=== PATIENT | female | born 1995 | race African-American/Black ===

== ENCOUNTER 2019-06-10 09:00 | Outpatient (CLI) | payer BC ==
--- NOTE | 2019-06-10 12:27 | MRI ---
LEFT KNEE MRI WITH IV CONTRAST: Date: 06/10/19 HISTORY: Left knee pain, follow-up sports injury. COMPARISON: 03/25/14. FINDINGS: There is a complex tear involving the medial meniscus extending from the body into the posterior horn and to the level of the posterior root, with some minimal intrameniscal cystic changes at the level of the posterior root. There are some persistent abnormal signal changes involving the lateral menisc us, posterior horn, and body region, with small focus of intrameniscal and parameniscal cystic change . There is a new focus of multilobulated cystic change noted posterior to the posterolateral compartm ent joint space measuring 1.3 x 3.8 x 0.8 cm, possibly a ganglion cyst which has developed since the prior study. Anterior and posterior cruciate ligaments, and collateral ligament complexes, and lorrie ceps and patellar tendons are intact. No abnormal marrow signal. No evidence for abnormal joint effus ion. IMPRESSION: 1. Complex tear of medial meniscus. 2. Minimal intrameniscal and parameniscal cystic change involving the posterior horn and posterior b cherrie of the lateral meniscus. 3. Newly developed somewhat loculated cystic collection posterior to the lateral compartment, possib ly a ganglion cyst. 4. No evidence for other significant acute internal derangement. POS: [facility]
== END 2019-06-10 09:01 | disposition home or self-care (01) ==
LOC: BICMRI 09:00
PROVIDERS: ATTEND Orthopaedic Surgery
DX: M25.562 Pain in left knee (principal); S83.232A Complex tear of medial meniscus, current injury, left knee, initial encounter

== ENCOUNTER 2019-09-02 06:15 | Outpatient (CLI) | payer BC ==
[2019-09-02 12:10] LABS: #Basophils 0.1 thou/uL (0.0-0.2); #Eosinphils 0.1 thou/uL (0.0-0.7); #Lymphocytes 2.2 thou/uL (1.20-3.40); #Monocytes 0.6 thou/uL (0.11-0.59); #Neutrophils 2.4 thou/uL (1.40-6.50); %Eosinophils 1.7 % (0.0-10.0); %Monocytes 11.2 % (0.0-10.0); Hemoglobin 14.9 g/dL (12.0-16.0); Mean Corpuscular HGB CONC 35.1 g/dL (32.0-36.0); Mean Platelet Volume 7.6 fL (7.4-10.4); Platelet Count 336 thou/uL (130-400); Red Blood Cell (RBC) Count 4.53 mill/uL (4.20-5.40); White Blood Cell (WBC) Count 5.4 thou/uL (4.8-10.8)
[2019-09-02 12:16] LABS: BHCG - Serum Negative (NEGATIVE); Bacteria/HPF None Seen HPF (None Seen); Bilirubin Negative (Negative); Blood, Urine 2+ (Negative); Clarity Clear (Clear); Glucose, Urine (Dipstick) Normal (Negative); Leukocyte Negative Leu/uL (Negative); Nitrite Negative (Negative); Pregs Control Background? CLEAR/WHITE (CLR/WHITE); Pregs Control Bar Appear? YES (CONTROL BAR); Protein, Urine (Dipstick) Negative (Neg-Trace); RBC/HPF Greater than 50 HPF (0-3); Squamous Epithelial 0-3 HPF (0-3); Urobilinogen Normal mg/dL (Less than 2)
== END 2019-09-02 06:16 | disposition home or self-care (01) ==
LOC: LABBT 06:15
PROVIDERS: ATTEND Orthopaedic Surgery
DX: Z01.812 Encounter for preprocedural laboratory examination (principal); M23.203 Derangement of unspecified medial meniscus due to old tear or injury, right knee; M23.200 Derangement of unspecified lateral meniscus due to old tear or injury, right knee
CPT/HCPCS: 81001; 84703; 85025

== ENCOUNTER 2019-09-04 06:58 | Day surgery (SDC) | payer BC ==
[2019-09-02 10:34] VITALS: BMI 37.8
[2019-09-04] MEDS ORDERED: Ketorolac Tromethamine 30 MG/ML VIAL ONE (09:21)
[2019-09-04] MEDS ORDERED: Lidocaine 1% PF 5 ML VIAL ONE (09:21)
[2019-09-04] MEDS ORDERED: PROPOFOL 200 MG/20 ML VIAL ONE (09:21)
[2019-09-04] MEDS ORDERED: Lidocaine 1% (PF) 30 ML VIAL ONE (09:22)
[2019-09-04] MEDS ORDERED: Lidocaine 1% w/Epinephrine 1:100K 20 ML VIAL ONE (09:22)
[2019-09-04] MEDS ORDERED: Fentanyl 100 MCG/2 ML VIAL ONE ×2 (09:35→11:03)
[2019-09-04] MEDS ORDERED: HYDROcodone/Acetaminophen 5/325 mg Tablet ONE (11:27)
--- NOTE | 2019-09-04 13:20 | HP ---
CHIEF COMPLAINT: Left knee pain. HISTORY OF PRESENT ILLNESS: Ms. Bret Law is a 24-year-old female, who presents with left knee pain, noted as medial and lateral pain. The pain can be severe at times, at a 7 or 8. The patient had a history of a discoid lateral meniscectomy performed in 2013. Since the operation, she has had some intermittent pain. She complains of posterior knee pain. Denies numbness or tingling . PAST MEDICAL HISTORY: Exercise-induced asthma. PAST SURGICAL HISTORY: Meniscectomy. ALLERGIES: NO KNOWN DRUG ALLERGIES. MEDICATIONS: None. SOCIAL HISTORY: Nonsmoker. No illicit drug use. The patient works as a security officers and guards. PHYSICAL EXAMINATION: GENERAL: Alert and oriented female, in no acute distress. EXTREMITIES: Left knee, no effusion. No significant erythema, ecchymosis, or swelling. The patient has medial and lateral joint line tenderness and tenderness in the lateral popliteal fossa. Neurovascularly intact distally. MRI showed a complex medial meniscus tear, previous debridement of lateral meniscus and a posterior multilobular Hollingsworth's cyst. I discussed with her performing a medial and lateral meniscectomy, possible repair. I discussed that if I could rupture, decompress the cyst and I would attempt to, but the position of the cyst lies directly anterior to the neurovascular bundle posteriorly and lateral to the posterolateral aspect of the knee. Therefore, I feel that this would be a difficult cyst to decompress/excise with potential further complication, I felt that likely the pain is potentially emanating from her meniscus and that sealing off the opening for the cyst may improve. IMPRESSION: 1. discoid lateral meniscus previous surgery 2. medial meniscus tear, 3. ganglion cyst . ASSESSMENT AND PLAN: The patient was taken out the OR for medial and lateral meniscectomy, possible repair potentially decompress cyst, but given its position within the knee and the concern close the neurovascular bundles medially and laterally. Therefore, I would just try to decompress or rupture it, but not likely completely excise the cyst. The risks and benefits of the surgery to include, pain, scar, bleeding, infection, damage to vital structures, arthritis long-term, need for further surgeries, damage to vital structures, loss of life or limb, and blood clots. The patient understood the risks and benefits and elected to proceed. The patient will be taken back to the operative suite. Job ID: [id number] [facility]
--- NOTE | 2019-09-04 14:39 | OP ---
DATE OF PROCEDURE: 09/04/2019 PREOPERATIVE DIAGNOSES: 1. Left lateral meniscus tear, previous discoid meniscectomy. 2. Complex posterior root medial meniscus tear, multiloculated cyst. POSTOPERATIVE DIAGNOSES: 1. Left lateral meniscus tear, previous discoid meniscectomy. 2. Complex posterior root medial meniscus tear, multiloculated cyst. PROCEDURE PERFORMED: Lateral meniscectomy. MACHINE SHOP SPECIALIST: None. ANESTHESIOLOGIST: Yoel. ANESTHESIA: The patient received a LMA with lidocaine plain and lidocaine with epicaine. TOURNIQUET TIME: 28 minutes. ANTIBIOTICS: Ancef 2 g. COMPLICATIONS: None. 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 The patient describes the knee pain as medial and lateral and posteriorly. The patient had a previous discoid lateral meniscus in 2013, which was debrided. She states that her pain has been severe in the left knee. Since that time, the pain is localized both medially and laterally as well as some posterior knee pain. The patient had an MRI showing a complex medial meniscus tear with pericystic changes of the lateral meniscus and tearing and a cystic flexion consistent with a ganglion cyst in the posterior compartment of the knee. I discussed with the patient the risks and benefits of the medial and lateral meniscectomy of her left knee. I discussed the risks and benefits, to include, pain, scar, bleeding, infection, damage to vital structures, continued pain, inability to decompress the cyst, arthritis, decreased range of motion and strength, loss of life or limb, blood clots. The patient understood the risks and benefits of the procedure and elected to proceed. DESCRIPTION OF PROCEDURE: Time-out was performed designating the patient's left lower extremity as the operative site based on site, consent, and marking. After time-out, the patient's left lower extremity was prepped and draped in a sterile fashion. The patient had a lidocaine with epinephrine injected in the joint preprocedure, made my portal to the previous stab incisions laterally. Then, I used a spinal needle with the same medial portal, excised some of the remnant scar and fat pad. I saw the ACL, PCL looked at the trochlear, patellar cartilage was good, looked in the gutters for loose bodies and saw nothing. I then looked at the medial femoral condyle and tibia, which looked good. I looked at the medial meniscus first, I could find some small changes, but the meniscus looked clean throughout its entire course within the joint. I probed underneath the meniscus trying to extrude in the joint, which I could not. I could not find a tear on top of it, so it must have been more in the synovium are hidden underneath the tear. I did not, given the clean look of the meniscus, feel that excising was the optimal outcome. I felt that leaving it in place was best, the tear was hidden, but it was not extruding the joint. Therefore, I left it alone. I moved from there to the lateral compartment. The patient's previous discoid meniscectomy had a flap in the anterior aspect. She had kind of a horizontal tear that started anteriorly and worked as well all the way around posteriorly. I went and put my camera over the posterior horn of the medial meniscus and looked in the back and it seemed like the capsular attachment was intact throughout its course, I cannot find a hole where the cyst was. Given this, I debrided the tear back to stable remnant. I did not take any more than just to complete the saucerization and give a stable remnant throughout the periphery. I looked at the cystic fluid, I was in the back of the knee, I could not find a bulging area spot that there might be hole that would connect and I did not have a spot, where I could probe and fall into the defect to try to decompress the cyst. Therefore, I left it alone. I completed my procedure, injected lidocaine and closed the skin, let the tourniquet down. The patient will be weightbearing as tolerated. [place] is guarded. The cyst is in a difficult place to excise and her meniscectomy hopefully will make her feel more stable. The medial meniscus, although documented on MRI looked clean throughout its course in the office. I did not feel that taking it out would be to her best benefit; therefore, I left it in place. Job ID: [id number] [facility]
== END 2019-09-04 13:38 | disposition home or self-care (01) ==
LOC: SDC 06:58
PROVIDERS: ATTEND Orthopaedic Surgery
PROC: 0SBD4ZZ Excision of Left Knee Joint, Percutaneous Endoscopic Approach (ICD-10-PCS; principal; 2019-09-04)
DX: S83.282A Other tear of lateral meniscus, current injury, left knee, initial encounter (principal); S83.232A Complex tear of medial meniscus, current injury, left knee, initial encounter; M71.22 Synovial cyst of popliteal space [Baker], left knee; Z91.018 Allergy to other foods; Z98.890 Other specified postprocedural states
CPT/HCPCS: J0690; J1885; J2001; J2704; J3010